=== PATIENT | female | born 1965 | race Two or more races ===

== ENCOUNTER 2024-12-20 10:12 | Inpatient (IN) | payer MEDICAID, OTHER ==
[~2024-12-20] VITALS: Ht 160 cm; Wt 76.8 kg
--- NOTE | 2024-12-20 10:29 | ED.PDOC ---
GI ASSESSMENT HPI Comments 59 y/o F, with PMHX of gallstones and HTN presents to the ED for CC of abdominal pain. Patient states, that she has been experiencing RUQ abdominal pain with associated symptoms of back pain, nausea, and vomiting xdays. Patient relays, that she has PMHX of cholelithiasis and is supposed to undergo a cholecystectomy on 01/16/25 however, symptoms have worsened. Patient denies dysuria, hematuria, diarrhea, headache, or fever. No other symptoms or modifying factors at this time. 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 all WELDING MACHINE OPERATOR/TENDER Hx Family History Family History: Family hx of HTN Social History Smoker: Non-Smoker Alcohol: Denies ETOH Use Drugs: Denies Drug Use Lives In: Home Constitutional: denies: chills, diaphoresis, fatigue, fever, malaise, sweats, weakness, others EENTM: denies: blurred vision, double vision, ear bleeding, ear discharge, ear drainage, ear pain, ear ringing, eye pain, eye redness, hearing loss, mouth pain, mouth swelling, nasal discharge, nose bleeding, nose congestion, nose pain, photophobia, tearing, throat pain, throat swelling, voice changes, others Respiratory: denies: cough, hemoptysis, orthopnea, SOB at rest, shortness of breath, SOB with excertion, stridor, wheezing, others Cardiovascular: denies: chest pain, dizzy spells, diaphoresis, Dyspnea on exertion, edema, irregular heart beat, left arm pain, lightheadedness, palpitations, PND, syncope, others Gastrointestinal: reports: abdominal pain, nausea, vomiting; denies: abdomen distended, blood streaked bowels, constipated, diarrhea, dysphagia, difficulty swallowing, hematemesis, melena, poor appetite, poor fluid intake, rectal bleeding, rectal pain, others Genitourinary: reports: flank pain; denies: abnormal vagina bleeding, burning, dyspareunia, dysuria, frequency, hematuria, incontinence, pain, , vagina discharge, urgency, others Neurological: denies: dizziness, fainting, headache, left sided numbness, left sided weakness, numbness, paresthesia, pre-existing deficit, right sided numbness, right sided weakness, seizure, speech problems, tingling, tremors, weakness, others Musculoskeletal: reports: back pain; denies: gout, joint pain, joint swelling, muscle pain, muscle stiffness, neck pain, others Integumetry: denies: bruises, change in color, change in hair/nails, dryness, laceration, lesions, lumps, rash, wounds, others Allergic/Immunocompromised: denies: Difficulty Healing, Frequent Infections, Hives, Itching, others Hematologic/Lymphatic: denies: anemia, blood clots, easy bleeding, easy bruising, swollen glands, others Endocrine: denies: excessive hunger, excessive sweating, excessive thirst, excessive urination, flushing, intolerance to cold, intolerance to heat, unexplained weight gain, unexplained weight loss, others Psychiatric: denies: anxiety, bipolar disorder, depression, hopeless, panic disorder, schizophrenia, sleepless, suicidal, others All Other Systems: Reviewed and Negative Physical Exam General Appearance: Moderate Distress HEENT: Normal ENT Inspection, Pharynx Normal, TMs Normal Neck: Full Range of Motion, Non-Tender, Normal, Normal Inspection Respiratory: Chest Non-Tender, Lungs Clear, No Accessory Muscle Use, No Respiratory Distress, Normal Breath Sounds Cardiovascular: No Edema, No JVD, No Murmur, No Gallop, Normal Peripheral Pul ses, Regular Rate/Rhythm Breast Exam: Deferred Gastrointestinal: No Organomegaly, No Pulsatile Mass, Normal Bowel Sounds, RUQ, Soft, Tenderness Genitalia: Deferred Pelvic: Deferred Rectal: Deferred Extremities: No calf tenderness, Normal capillary refill, Normal inspection, Normal range of motion, Non-tender, No pedal edema Musculoskeletal : Apperance: Normal Neurologic: Alert, inter com servicer II-XII nml as Tested, No Motor Deficits, Normal Affect, Normal Mood, No Sensory Deficits Cerebellar Function: Normal Reflexes: Normal Skin: Dry, Normal Color, Warm Lymphatic: No Adenopathy Was a procedure done? Was a procedure done?: No GI differential Dx Differential Diagnosis: Cholecystitis, Gastritis/PUD, Gastroenteritis, Electrolyte Imbalance X-Ray, Labs, Meds, VS Vital Signs Date Time Temp Pulse Resp B/P (MAP) Pulse Ox O2 Delivery O2 Flow Rate FiO2 12/20/24 12:09 98.0 74 19 142/86 (104) 99 98.0 12/20/24 12:08 Room Air* 0 21 12/20/24 11:36 89 18 135/84 12/20/24 11:06 71 17 122/65 12/20/24 10:18 98.4 73 20 129/65 (86) 98 Lab Test 12/20/24 10:41 12/20/24 10:23 Range/Units White Blood Count Pending Red Blood Count Pending Hemoglobin Pending Hematocrit Pending Mean Corpuscular Volume Pending Mean Corpuscular Hemoglobin Pending Mean Corpuscular Hemoglobin Concent Pending Red Cell Distribution Width Pending Platelet Count Pending Mean Platelet Volume Pending Neutrophils (%) (Auto) Pending Lymphocytes (%) (Auto) Pending Monocytes (%) (Auto) Pending Basophils (%) (Auto) Pending Neutrophils # (Auto) Pending Lymphocytes # (Auto) Pending Monocytes # (Auto) Pending Sodium Level 137 136-145 mmol/L Potassium Level 4.2 3.5-5.1 mmol/L Chloride Level 104 98-107 mmol/L Carbon Dioxide Level 22 20-31 mmol/L Anion Gap 11 5-15 Blood Urea Nitrogen 11 9-23 mg/dL Creatinine 0.79 0.550-1.02 mg/dL Glomerular Filtration Rate Calc 85 >90 mL/min BUN/Creatinine Ratio 13.9 10.0-20.0 Serum Glucose 96 74-106 mg/dL Calcium Level 10.3 8.7-10.4 mg/dL Total Bilirubin 1.1 H 0.2-1.0 mg/dL Aspartate Amino Transferase (AST) 31 13-40 U/L Alanine Aminotransferase (ALT) 24 7-40 U/L Alkaline Phosphatase 95 46-116 U/L Total Protein 8.2 5.7-8.2 g/dL Albumin 4.9 H 3.2-4.8 g/dL Lipase 43 12-53 U/L Urine Color Yellow Yellow Urine Clarity Clear Clear Urine pH 8.0 5.0-9.0 Urine Specific [place] 1.024 1.001-1.035 Urine Protein Trace H Negative Urine Ketones Negative Negative Urine Blood Negative Negative /uL Urine Nitrite Negative Negative Urine Bilirubin Negative Negative Urine Urobilinogen 2 H Negative mg/dL Urine Leukocyte Esterase Negative Negative /uL Urine RBC 12 0 - 4 /hpf Urine Microscopic WBC 1 0-5 /HPF Urine Squamous Epithelial Cells Few <5 /hpf Urine Bacteria None seen None Seen /hpf Urine Mucus Few None Seen Urine Glucose Normal Normal mg/dL Current Medications Medications (Trade) Dose Ordered Sig/Deepak Route Start Time Stop Time Status Last Admin Ondansetron HCl (Zofran) 4 mg ONCE ONCE IV 12/20/24 10:30 12/20/24 10:31 DC 12/20/24 11:04 Sodium Chloride 1,000 ml @ 1,000 mls/hr Q1H ONCE IVB 12/20/24 10:30 12/20/24 11:29 DC 12/20/24 11:04 Morphine Sulfate 4 mg ONCE ONCE IV 12/20/24 10:30 12/20/24 10:31 DC 12/20/24 11:06 Pantoprazole Sodium (Protonix) 40 mg ONCE ONCE IV 12/20/24 10:30 12/20/24 10:31 DC 12/20/24 11:04 GALLBLADDER US: FINDINGS: The liver demonstrates homogeneous echotexture without focal mass lesions. The liver measures 12.6 cm. There is no intrahepatic or extrahepatic ductal dilatation. The common duct measures 0.7 cm. Cholelithiasis. The gallbladder wall measures 0.2 cm and is within normal limits. The right kidney measures 9.8 cm. The right kidney is normal in contour, size, and shape. The echogenicity is normal. There is no hydronephrosis. The pancreas is not well visualized due to overlying bowel gas. IMPRESSION: Cholelithiasis. ATED BY: PADDY WADE MD DICTATED DATE/TIME: 12/20/24 1116 SIGNED BY: PDADY WADE MD SIGNED DATE/TIME: 12/20/24 111 CC: IV Hep-Lock was established The patient was given morphine 4 mg IV push for the pain The patient was given 1 L bolus of normal saline The patient was given Zofran 4 mg IV push The patient was given Protonix 40 mg IV push The urine test is negative for any infection The chemistry panel is within normal limits At this time, the patient was being admitted to the hospitalist. A surgical consult will be obtained. Images Reviewed?: Images reviewed and evaluated by me Time of 1ST Reevaluation: 10:50 Reevaluation 1ST: Unchanged Patient Education/Counseling: Diagnosis, Treatment, Prognosis Family Education/Counseling: Diagnosis, Treatment, Prognosis Departure 1 Departure Time of Disposition: 12:11 Impression: Primary Impression: Intractable abdominal pain Additional Impression: Cholelithiasis Qualified Codes: K80.20 - Calculus of gallbladder without cholecystitis without obstruction Disposition: ADMITTED INPATIENT Admit to: Med Surg Condition: Fair Critical Care Note Critical Care Time?: No Stability Stability form required: No Heart Score Heart Score: Heart Score Response (Comments) Value History N/A 0 EKG N/A 0 Age N/A 0 Risk Factors N/A 0 Troponin N/A 0 Total 0 I personally scribed for AISHA HUBER MD ([email or web address]) on 12/20/24 at 10:29. Electronically submitted by Lesley Celis ([email or web address]). I personally scribed for AISHA HUBER MD ([email or web address]) on 12/20/24 at 11:33. Electronically submitted by Lesley Celis ([email or web address]). AISHA HUBER MD Dec 20, 2024 10:29
[2024-12-20 10:42] LABS: Urine Bacteria None Seen /hpf (None Seen)
[2024-12-20] MEDS: PANTOPRAZOLE 40 MG/10 ML VIAL INJ IV ONE (11:04)
[2024-12-20] MEDS: SODIUM CHLORIDE 0.9% 1,000 ML IVB ONE (11:04)
[2024-12-20] MEDS: ONDANSETRON HCL 4 MG/2 ML VIAL IV ONE (11:04)
[2024-12-20] MEDS: MORPHINE SULFATE 4 MG/ML SYR/VIAL IV ONE (11:06)
[2024-12-20 11:15] LABS: Alanine Aminotransferase 24 U/L (7-40); Alkaline Phosphatase 95 U/L (46-116); Anion Gap 11 (5-15); Aspartate Aminotransferase 31 U/L (13-40); BUN/Creatinine Ratio 13.9 (10.0-20.0); Blood Urea Nitrogen 11 mg/dL (9-23); Calcium 10.3 mg/dL (8.7-10.4); Carbon Dioxide 22 mmol/L (20-31); Chloride 104 mmol/L (98-107); Glucose 96 mg/dL (74-106); Lipase 43 U/L (12-53); Potassium 4.2 mmol/L (3.5-5.1); Sodium 137 mmol/L (136-145); Total Protein 8.2 g/dL (5.7-8.2)
[2024-12-20 11:16] LABS: Bilirubin, Total 1.1 mg/dL (0.2-1.0)
--- NOTE | 2024-12-20 11:19 | DVH ---
INDICATION: pain TECHNIQUE: Multiple real-time sonographic images were obtained of the right upper quadrant. COMPARISON: None FINDINGS: The liver demonstrates homogeneous echotexture without focal mass lesions. The liver measu res 12.6 cm. There is no intrahepatic or extrahepatic ductal dilatation. The common duct measures 0.7 cm. Cholelithiasis. The gallbladder wall measures 0.2 cm and is within normal limits. The right kidney measures 9.8 cm. The right kidney is normal in contour, size, and shape. The echogen icity is normal. There is no hydronephrosis. The pancreas is not well visualized due to overlying bowel gas. IMPRESSION: Cholelithiasis.
[2024-12-20 11:32] LABS: Albumin 4.9 g/dL (3.2-4.8)
[2024-12-20 11:49] LABS: Urine Blood Negative /uL (Negative); Urine Clarity Clear (Clear); Urine Color Yellow (Yellow); Urine Mucus FEW (None Seen); Urine Protein, UAD TRACE (Negative); Urine Specific Gravity 1.024 (1.001-1.035); Urine Squamous Epithelial Cell FEW /hpf (<5); Urine Urobilinogen 2 mg/dL (Negative); Urine WBC 1 /HPF (0-5)
[2024-12-20 13:06] LABS: Basophils # (auto) 0.1 10 ^3/uL (0-0.2); Basophils % (auto) 0.7 % (0.0-2.0); Eosinophils # (auto) 0.2 10 ^3/uL (0-0.8); Eosinophils % (auto) 2.8 % (0.0-7.0); Hematocrit 41.9 % (36.0-46.0); Hemoglobin 14.1 g/dL (12.2-16.2); Lymphocytes # (auto) 2.7 10 ^3/uL (0.4-5.4); Lymphocytes % (auto) 30.5 % (10.0-50.0); Mean Corpuscular Hemoglobin 31.3 pg (28.0-32.0); Mean Corpuscular Hgb Conc. 33.7 g/dL (32.0-36.0); Mean Corpuscular Volume 92.9 fL (80.0-100.0); Monocytes # (auto) 0.6 10 ^3/uL (0-1.3); Monocytes % (auto) 6.2 % (0.0-12.0); Neutrophils # (auto) 5.3 10 ^3/uL (1.6-8.6); Neutrophils % (auto) 59.8 % (37.0-80.0); Nucleated Red Blood Cells % 0.1 %; Platelet Count (auto) 283 10^3/uL (140-450); Red Blood Cells 4.51 10^6/uL (4.0-5.20); Red Cell Distribution Width 13.7 % (11.8-14.3); White Blood Cell 8.8 10^3/uL (4.4-10.8)
--- NOTE | 2024-12-20 15:25 | DVHHPRES ---
History of Present Illness Resident Creating Document: CLINTON MEYER RESIDENT History of Present Illness This is a 59-year-old Icelandic-speaking female with past medical history of hypertension, cholelithiasis who presented to the ER with a chief complaint of right-sided abdominal pain for the past week. She reported right upper quadrant pain, radiating to the back associated with nausea and vomiting, she is not able to tolerate liquids or solid. Patient was diagnosed with cholelithiasis in 2023 and has an initial appointment with the surgeon on January 16. She developed right upper quadrant pain and therefore she decided to come into the ER. Ultrasound abdomen completed with the ER, shows cholelithiasis. Patient has positive Arnett sign on physical examination. Past medical history: Hypertension Past surgical history: Right shoulder surgery Family history: Open heart surgery in brother for congenital heart disease at the age of 19 Medication: Takes antihypertensive-does not remember the name Allergic history, denies Social history lives with daughter, denies smoking or drinking or illicit drug use Patient seen and examined at the bedside. Arnett sign positive. IV ceftriaxone and metronidazole started. Surgeon consulted. NPO after midnight. Past Medical History Hypertension Past Surgical History Right shoulder surgery Family History Open heart surgery in brother for congenital heart disease at the age of 19 Smoke: No ALCOHOL: none Drugs: None Lives: with Family Review of Systems Allergies: Coded Allergies: NO KNOWN ALLERGIES (Unverified , 12/20/24) Exam Vital Signs Vital Signs Date Time Temp Pulse Resp B/P (MAP) Pulse Ox O2 Delivery O2 Flow Rate FiO2 12/20/24 14:21 97.7 67 16 98/58 (71) 96 97.7 12/20/24 12:08 Room Air* 0 21 Exam Female patient sitting comfortably in the chair, no acute distress General: Well-built, afebrile, palor, mucosae are moist Cardiovascular: Regular S1 and S2. No murmurs, gallops or rubs. No JVD elevation. No pedal edema Respiratory: Normal B/L air entry on room air. Clear lung sounds on auscultation Abdomen: Soft, right upper quadrant tenderness, nondistended, normoactive bowel sounds, no rebound tenderness, no organomegaly, no masses. Arnett sign is positive. Genitourinary: Deferred MSK/skin: Mobilizes 4 limbs. Skin is dry and warm Neurological: No motor, no sensitive deficits, normal speech. Pupils are isocoric and reactive. Psych/Mental Status: A/Ox3 Labs/Xrays Labs Test 12/20/24 10:41 12/20/24 10:23 Range/Units White Blood Count 8.8 4.4-10.8 10^3/uL Red Blood Count 4.51 4.0-5.20 10^6/uL Hemoglobin 14.1 12.2-16.2 g/dL Hematocrit 41.9 36.0-46.0 % Mean Corpuscular Volume 92.9 80.0-100.0 fL Mean Corpuscular Hemoglobin 31.3 28.0-32.0 pg Mean Corpuscular Hemoglobin Concent 33.7 32.0-36.0 g/dL Red Cell Distribution Width 13.7 11.8-14.3 % Platelet Count 283 140-450 10^3/uL Mean Platelet Volume 8.9 6.9-10.8 fL Neutrophils (%) (Auto) 59.8 37.0-80.0 % Lymphocytes (%) (Auto) 30.5 10.0-50.0 % Monocytes (%) (Auto) 6.2 0.0-12.0 % Eosinophils (%) (Auto) 2.8 0.0-7.0 % Basophils (%) (Auto) 0.7 0.0-2.0 % Neutrophils # (Auto) 5.3 1.6-8.6 10 ^3/uL Lymphocytes # (Auto) 2.7 0.4-5.4 10 ^3/uL Monocytes # (Auto) 0.6 0-1.3 10 ^3/uL Eosinophils # (Auto) 0.2 0-0.8 10 ^3/uL Basophils # (Auto) 0.1 0-0.2 10 ^3/uL Nucleated Red Blood Cells 0.1 % Sodium Level 137 136-145 mmol/L Potassium Level 4.2 3.5-5.1 mmol/L Chloride Level 104 98-107 mmol/L Carbon Dioxide Level 22 20-31 mmol/L Anion Gap 11 5-15 Blood Urea Nitrogen 11 9-23 mg/dL Creatinine 0.79 0.550-1.02 mg/dL Glomerular Filtration Rate Calc 85 >90 mL/min BUN/Creatinine Ratio 13.9 10.0-20.0 Serum Glucose 96 74-106 mg/dL Calcium Level 10.3 8.7-10.4 mg/dL Total Bilirubin 1.1 H 0.2-1.0 mg/dL Aspartate Amino Transferase (AST) 31 13-40 U/L Alanine Aminotransferase (ALT) 24 7-40 U/L Alkaline Phosphatase 95 46-116 U/L Total Protein 8.2 5.7-8.2 g/dL Albumin 4.9 H 3.2-4.8 g/dL Lipase 43 12-53 U/L Urine Color Yellow Yellow Urine Clarity Clear Clear Urine pH 8.0 5.0-9.0 Urine Specific [place] 1.024 1.001-1.035 Urine Protein Trace H Negative Urine Ketones Negative Negative Urine Blood Negative Negative /uL Urine Nitrite Negative Negative Urine Bilirubin Negative Negative Urine Urobilinogen 2 H Negative mg/dL Urine Leukocyte Esterase Negative Negative /uL Urine RBC 12 0 - 4 /hpf Urine Microscopic WBC 1 0-5 /HPF Urine Squamous Epithelial Cells Few <5 /hpf Urine Bacteria None seen None Seen /hpf Urine Mucus Few None Seen Urine Glucose Normal Normal mg/dL Assessment/Plan Assessment/Plan Right upper quadrant pain secondary to cholelithiasis IV ceftriaxone and metronidazole Clear liquid diet for now, NPO after midnight Surgeon consulted Hypertension Holding antihypertensives given low blood pressure Lovenox 40 mg sc daily Protonix 40 mg IV daily Plan discussed with patient, daughter in ER holding, all questions have been answered Goals of care discussed with the patient for more than 37 minutes, full code status Case discussed with Dr. Beatty Plan discussed with: Patient Date of Service: Dec 20, 2024 Billing Provider: DEDRICK CHAMPION MD Common Visit Codes: [id number] INP/OBS CARE (HIGH) CLINTON MEYER RESIDENT Dec 20, 2024 15:25 DEDRICK CHAMPION MD Dec 26, 2024 02:35
[2024-12-20] MEDS ORDERED: ONDANSETRON HCL 4 MG/2 ML VIAL IV PRN (15:30)
[2024-12-20] MEDS ORDERED: ENOXAPARIN SOD 40 MG/0.4 ML SYRINGE SC SCH (15:30)
[2024-12-20] MEDS ORDERED: metroNIDAZOLE 500MG/100ML 100 ML IV ONE (15:30)
[2024-12-20] MEDS ORDERED: PANTOPRAZOLE 40 MG/10 ML VIAL INJ IV ONE (15:30)
[2024-12-20] MEDS ORDERED: HYDROcodone-ACET 5/325MG TAB PO PRN (15:30)
[2024-12-20] MEDS: cefTRIAXone 1GM/50ML D5W 50 ML IV ONE (17:32)
--- NOTE | 2024-12-20 18:01 | DVH ---
CHEST RADIOGRAPH Indication: Preop clearance Technique: Single frontal view of the chest was obtained Comparison: None FINDINGS: Lines and Tubes: None Lungs: No focal consolidation. Pleura: No effusion. No pneumothorax. Cardiomediastinal contours: Unremarkable Bones: No acute osseous abnormality. IMPRESSION: 1. No acute cardiopulmonary disease.
[2024-12-20 19:58] VITALS: BP 115/74; PULSE 66; RESP 18; TEMP 97.6; O2SAT 99
[2024-12-20 21:00] VITALS: BP 105/63; PULSE 62; RESP 20; TEMP 98.4; O2SAT 98
[2024-12-20] MEDS: metroNIDAZOLE 500MG/100ML 100 ML IV SCH (21:18)
[2024-12-20] MEDS ORDERED: TELM80TA PO (22:12)
[2024-12-21] VITALS (7 sets, daily range): BP systolic 95–128; BP diastolic 55–71; PULSE 59–78; RESP 16–20; TEMP 97.6–99.1; O2SAT 95–99
[2024-12-21] MEDS: HYDROcodone-ACET 5/325MG TAB PO PRN (00:49)
[2024-12-21 06:02] LABS: Basophils # (auto) 0 10 ^3/uL (0-0.2); Basophils % (auto) 0.7 % (0.0-2.0); Eosinophils # (auto) 0.1 10 ^3/uL (0-0.8); Eosinophils % (auto) 1.3 % (0.0-7.0); Hematocrit 35.3 % (36.0-46.0); Hemoglobin 12.4 g/dL (12.2-16.2); Lymphocytes # (auto) 2.7 10 ^3/uL (0.4-5.4); Lymphocytes % (auto) 42.8 % (10.0-50.0); Mean Corpuscular Hemoglobin 31.3 pg (28.0-32.0); Mean Corpuscular Volume 89.3 fL (80.0-100.0); Monocytes # (auto) 0.4 10 ^3/uL (0-1.3); Monocytes % (auto) 6.2 % (0.0-12.0); Neutrophils # (auto) 3.1 10 ^3/uL (1.6-8.6); Platelet Count (auto) 301 10^3/uL (140-450); Red Blood Cells 3.96 10^6/uL (4.0-5.20); Red Cell Distribution Width 13.3 % (11.8-14.3); White Blood Cell 6.2 10^3/uL (4.4-10.8)
[2024-12-21 06:13] LABS: INR 1.04 (0.9-1.15); Partial Thromboplastin Time 27.1 SEC (24.5-34.5)
[2024-12-21 06:19] LABS: Alanine Aminotransferase 19 U/L (7-40); Albumin 4.4 g/dL (3.2-4.8); Alkaline Phosphatase 82 U/L (46-116); Anion Gap 7 (5-15); Aspartate Aminotransferase 16 U/L (13-40); BUN/Creatinine Ratio 13.9 (10.0-20.0); Blood Urea Nitrogen 11 mg/dL (9-23); Calcium 9.9 mg/dL (8.7-10.4); Carbon Dioxide 29 mmol/L (20-31); Chloride 104 mmol/L (98-107); Glucose 90 mg/dL (74-106); Potassium 4.1 mmol/L (3.5-5.1); Sodium 140 mmol/L (136-145); Total Protein 7.2 g/dL (5.7-8.2)
[2024-12-21 06:20] LABS: Bilirubin, Total 0.9 mg/dL (0.2-1.0)
[2024-12-21] MEDS: ERGOCALCIFEROL 50,000 UNIT(1.25MG) CAP PO SCH (08:55)
[2024-12-21] MEDS: PANTOPRAZOLE 40 MG/10 ML VIAL INJ IV SCH (08:55)
[2024-12-21] MEDS: cefTRIAXone 1GM/50ML D5W 50 ML IV SCH (08:56)
[2024-12-21] MEDS: SODIUM CHLORIDE 0.9% 1,000 ML IV ONE (08:56)
--- NOTE | 2024-12-21 14:51 | DVHPNRES ---
Progress Note Date Seen: Dec 21, 2024 Resident Creating Document: CLINTON MEYER RESIDENT Medical Necessity Reason Pt with a Central, PICC or Fol: No Subjective Review of Systems This is a 59-year-old Azeri-speaking female with past medical history of hypertension, cholelithiasis who presented to the ER with a chief complaint of right-sided abdominal pain for the past week. She reported right upper quadrant pain, radiating to the back associated with nausea and vomiting, she is not able to tolerate liquids or solid. Patient was diagnosed with cholelithiasis in 2023 and has an initial appointment with the surgeon on January 16. She developed right upper quadrant pain and therefore she decided to come into the ER. Ultrasound abdomen completed with the ER, shows cholelithiasis. Patient has positive Arnett sign on physical examination. Past medical history: Hypertension Past surgical history: Right shoulder surgery Family history: Open heart surgery in brother for congenital heart disease at the age of 19 Medication: Takes antihypertensive-does not remember the name Allergic history, denies Social history lives with daughter, denies smoking or drinking or illicit drug use 12/20 - Patient seen and examined at the bedside. Arnett sign positive. IV ceftriaxone and metronidazole started. Surgeon consulted. NPO after midnight. 12/21 - patient seen and examined at the bedside. Started clear liquid diet. Surgical consult pending. Objective vital signs Vital Sign Date Time Temp Pulse Resp B/P (MAP) Pulse Ox O2 Delivery O2 Flow Rate FiO2 12/21/24 12:46 98.8 61 16 105/64 (78) 96 98.8 12/20/24 19:54 Room Air* 0 21 Total Intake and Output 12/20/24 12/20/24 12/21/24 15:00 23:00 07:00 Intake Total 1000 ml 150 ml 100 ml Balance 1000 ml 150 ml 100 ml medications Current Medications Medications Dose Ordered Sig/Deepak Route Start Time Stop Time Status Last Admin Dose Admin Ceftriaxone Sodium 50 ml @ 100 mls/hr DAILY@09 IV 12/21/24 09:00 12/21/24 08:56 100 MLS/HR Metronidazole 100 ml @ 100 mls/hr Q8HR IV 12/20/24 22:00 12/21/24 13:07 100 MLS/HR Pantoprazole Sodium 40 mg DAILY IV 12/21/24 10:00 12/21/24 08:55 40 MG Acetaminophen 500 mg Q4HPRN PRN PO 12/20/24 15:30 Acetaminophen/ Hydrocodone Bitart 1 tab Q4HPRN PRN PO 12/20/24 15:30 12/21/24 00:49 1 TAB Ondansetron HCl 4 mg Q6HPRN PRN IV 12/20/24 15:30 Ergocalciferol 50,000 unit Q7D PO 12/21/24 07:15 12/21/24 08:55 50,000 UNIT Examination Female patient sitting comfortably in the chair, no acute distress General: Well-built, afebrile, palor, mucosae are moist Cardiovascular: Regular S1 and S2. No murmurs, gallops or rubs. No JVD elevation. No pedal edema Respiratory: Normal B/L air entry on room air. Clear lung sounds on auscultation Abdomen: Soft, right upper quadrant tenderness, nondistended, normoactive bowel sounds, no rebound tenderness, no organomegaly, no masses. Arnett sign is positive. Genitourinary: Deferred MSK/skin: Mobilizes 4 limbs. Skin is dry and warm Neurological: No motor, no sensitive deficits, normal speech. Pupils are isocoric and reactive. Psych/Mental Status: A/Ox3 laboratory and microbiology Laboratory Tests 12/21/24 05:07 12/21/24 05:06 Test 12/21/24 05:07 Range/Units Serum Glucose 90 74-106 mg/dL Labs and/or images reviewed: Labs reviewed by me, Image(s) reviewed by me Problem List/Assessment/Plan Problem List/Assessment/Plan Right upper quadrant pain secondary to cholelithiasis IV ceftriaxone and metronidazole Clear liquid diet for now, NPO after midnight Surgeon consulted Hypertension Holding antihypertensives given low blood pressure Lovenox 40 mg sc daily Protonix 40 mg IV daily Plan discussed with patient, daughter in ER holding, all questions have been answered Goals of care discussed with the patient for more than 37 minutes, full code status Case discussed with Dr. Beatty Plan discussed with: Patient, Daughter My Orders My Orders Orders - CLINTON MEYER RESIDENT Procedure Category Date Status Time Admit ADMIT 12/20/24 Transmitted 15:18 Chest Xray 1 View XY 12/20/24 Resulted 15:25 Electrocardigram EKG 12/20/24 Logged 15:25 Drug Screen LAB 12/20/24 Logged 15:25 Ceftriaxone 1gm/50ml PHA 12/21/24 In Process D5w (Rocephin) 09:00 Metronidazole PHA 12/20/24 In Process 500mg/100ml (Flagyl 22:00 Pantoprazole PHA 12/21/24 In Process (Protonix) 10:00 Acetaminophen Tab Or PHA 12/20/24 In Process Cap (Tylenol Tablet 15:30 Hydrocodone-Acet PHA 12/20/24 In Process 5/325mg Tab (Center 15:30 Ondansetron Hcl PHA 12/20/24 In Process (Zofran) 15:30 Ergocalciferol PHA 12/21/24 In Process (Vitamin D 50,000 07:15 Full Liq Diet DIET 12/21/24 Transmitted Lunch Communication Order ORDERS 12/21/24 Transmitted 12:01 * Surgical Consult CONS 12/21/24 Transmitted 12:01 Date of Service: Dec 21, 2024 Billing Provider: DEDRICK CHAMPION MD Common Visit Codes: [id number] INP/OBS CARE(HIGH) CLINTON MEYER RESIDENT Dec 21, 2024 14:51 DEDRICK CHAMPION MD Dec 26, 2024 01:40
--- NOTE | 2024-12-21 16:54 | DVHINCON2 ---
Date of service: Dec 21, 2024 Family History: Patient reports no known family medical history. Allergies: Coded Allergies: NO KNOWN ALLERGIES (Unverified , 12/20/24) Home Meds Reported Medications Telmisartan (Micardis) 80 Mg Tab, 80 MG PO DAILY, TAB 12/20/24 Current Medications Current Medications Medications (Trade) Dose Ordered Sig/Deepak Route PRN Reason Start Time Stop Time Status Last Admin Ceftriaxone Sodium 50 ml @ 100 mls/hr DAILY@09 IV 12/21/24 09:00 12/21/24 08:56 Metronidazole 100 ml @ 100 mls/hr Q8HR IV 12/20/24 22:00 12/21/24 13:07 Pantoprazole Sodium (Protonix) 40 mg DAILY IV 12/21/24 10:00 12/21/24 08:55 Ergocalciferol (Vitamin D 50,000 Unit) 50,000 unit Q7D PO 12/21/24 07:15 12/21/24 08:55 Vital Signs Vital Signs Date Time Temp Pulse Resp B/P (MAP) Pulse Ox O2 Delivery O2 Flow Rate FiO2 12/21/24 12:46 98.8 61 16 105/64 (78) 96 98.8 12/20/24 19:54 Room Air* 0 21 Labs/Diagnostic Data Labs Test 12/21/24 05:07 12/21/24 05:06 12/20/24 18:42 12/20/24 10:41 Range/Units Prothrombin Time 11.0 9.3-11.8 sec Prothrombin Time INR 1.04 0.9-1.15 Activated Partial Thromboplast Time 27.1 24.5-34.5 SEC Sodium Level 140 136-145 mmol/L Potassium Level 4.1 3.5-5.1 mmol/L Chloride Level 104 98-107 mmol/L Carbon Dioxide Level 29 20-31 mmol/L Anion Gap 7 5-15 Blood Urea Nitrogen 11 9-23 mg/dL Creatinine 0.79 0.550-1.02 mg/dL Glomerular Filtration Rate Calc 85 >90 mL/min BUN/Creatinine Ratio 13.9 10.0-20.0 Serum Glucose 90 74-106 mg/dL Calcium Level 9.9 8.7-10.4 mg/dL Total Bilirubin 0.9 0.2-1.0 mg/dL Aspartate Amino Transferase (AST) 16 13-40 U/L Alanine Aminotransferase (ALT) 19 7-40 U/L Alkaline Phosphatase 82 46-116 U/L Total Protein 7.2 5.7-8.2 g/dL Albumin 4.4 3.2-4.8 g/dL White Blood Count 6.2 # 4.4-10.8 10^3/uL Red Blood Count 3.96 L 4.0-5.20 10^6/uL Hemoglobin 12.4 12.2-16.2 g/dL Hematocrit 35.3 #L 36.0-46.0 % Mean Corpuscular Volume 89.3 80.0-100.0 fL Mean Corpuscular Hemoglobin 31.3 28.0-32.0 pg Mean Corpuscular Hemoglobin Concent 35.0 32.0-36.0 g/dL Red Cell Distribution Width 13.3 11.8-14.3 % Platelet Count 301 140-450 10^3/uL Mean Platelet Volume 8.0 6.9-10.8 fL Neutrophils (%) (Auto) 49.0 37.0-80.0 % Lymphocytes (%) (Auto) 42.8 10.0-50.0 % Monocytes (%) (Auto) 6.2 0.0-12.0 % Eosinophils (%) (Auto) 1.3 0.0-7.0 % Basophils (%) (Auto) 0.7 0.0-2.0 % Neutrophils # (Auto) 3.1 1.6-8.6 10 ^3/uL Lymphocytes # (Auto) 2.7 0.4-5.4 10 ^3/uL Monocytes # (Auto) 0.4 0-1.3 10 ^3/uL Eosinophils # (Auto) 0.1 0-0.8 10 ^3/uL Basophils # (Auto) 0 0-0.2 10 ^3/uL Nucleated Red Blood Cells 0.0 % Thyroid Stimulating Hormone (TSH) 2.79 0.55-4.78 uIU/mL Hemoglobin A1c 5.1 <5.7 % A1C Magnesium Level 2.2 1.6-2.6 mg/dL Lipase 43 12-53 U/L Vitamin B12 Level 467 211-911 pg/mL Vitamin D 25-Hydroxy 29.2 L 30.0-100 ng/mL Test 12/20/24 10:23 Range/Units Urine Color Yellow Yellow Urine Clarity Clear Clear Urine pH 8.0 5.0-9.0 Urine Specific [place] 1.024 1.001-1.035 Urine Protein Trace H Negative Urine Ketones Negative Negative Urine Blood Negative Negative /uL Urine Nitrite Negative Negative Urine Bilirubin Negative Negative Urine Urobilinogen 2 H Negative mg/dL Urine Leukocyte Esterase Negative Negative /uL Urine RBC 12 0 - 4 /hpf Urine Microscopic WBC 1 0-5 /HPF Urine Squamous Epithelial Cells Few <5 /hpf Urine Bacteria None seen None Seen /hpf Urine Mucus Few None Seen Urine Glucose Normal Normal mg/dL Assessment [id number] R/O AC CHOLECYSTITIS CONSIDER LAP/OPEN CHOLECYSTECTOMY AM BASED ON ONGOING EVAL Plan discussed with: Patient TOM STANLEY MD Dec 21, 2024 16:54
--- NOTE | 2024-12-21 20:53 | DVHINCON2 ---
DATE OF CONSULTATION: 12/21/2024 DATE OF SERVICE: 12/21/2024 ATTENDING PHYSICIAN: Leonel Sol MD. HISTORY OF PRESENT ILLNESS: This patient is 59 years old, coming in with right upper quadrant pain. She has had this happened before last year, was scheduled for gallbladder surgery, but did not happen and then comes back with the same kind of pain and some nausea, but no vomiting, no constipation, diarrhea. No hematemesis, melena. No bleeding per rectum. PAST MEDICAL HISTORY: Hypertension. No diabetes. PAST SURGICAL HISTORY: Right shoulder surgery. PHYSICAL EXAMINATION: VITAL SIGNS: Afebrile, stable signs. HEENT: With no evidence of pallor, cyanosis, or jaundice. NECK: Supple, nontender with no thyromegaly, lymphadenopathy. CHEST AND LUNGS: Clear. HEART: Within normal limits. ABDOMEN: Soft. She is tender in the right upper quadrant. Minimal rebound. EXTREMITIES: Unremarkable. NEUROLOGIC: Intact. CLINICAL IMPRESSION: Rule out acute cholecystitis. PLAN: Laparoscopic, possible open cholecystectomy. Benefits discussed. Risks discussed and a consent obtained. MD GUADALUPE [place]/NANDINI TID: [id number] RECEIPT: [id number] cc: Dr. Lux Lawler
[2024-12-22] VITALS (9 sets, daily range): BP systolic 93–115; BP diastolic 56–74; PULSE 65–80; RESP 15–18; TEMP 97.5–98.2; O2SAT 93–99
--- NOTE | 2024-12-22 09:39 | DVHPNRES ---
Progress Note Date Seen: Dec 22, 2024 Resident Creating Document: CLINTON MEYER RESIDENT Medical Necessity Reason Pt with a Central, PICC or Fol: No Subjective Review of Systems This is a 59-year-old Estonian-speaking female with past medical history of hypertension, cholelithiasis who presented to the ER with a chief complaint of right-sided abdominal pain for the past week. She reported right upper quadrant pain, radiating to the back associated with nausea and vomiting, she is not able to tolerate liquids or solid. Patient was diagnosed with cholelithiasis in 2023 and has an initial appointment with the surgeon on January 16. She developed right upper quadrant pain and therefore she decided to come into the ER. Ultrasound abdomen completed with the ER, shows cholelithiasis. Patient has positive Arnett sign on physical examination. Past medical history: Hypertension Past surgical history: Right shoulder surgery Family history: Open heart surgery in brother for congenital heart disease at the age of 19 Medication: Takes antihypertensive-does not remember the name Allergic history, denies Social history lives with daughter, denies smoking or drinking or illicit drug use 12/20 - Patient seen and examined at the bedside. Arnett sign positive. IV ceftriaxone and metronidazole started. Surgeon consulted. NPO after midnight. 12/21 - patient seen and examined at the bedside. Started clear liquid diet. Surgical consult pending. 12/22 patient seen and examined at the bedside. Patient underwent lap cholecystectomy, no drains and no complications. Objective vital signs Vital Sign Date Time Temp Pulse Resp B/P (MAP) Pulse Ox O2 Delivery O2 Flow Rate FiO2 12/22/24 08:00 65 15 99 Room Air* 0 21 12/22/24 05:00 98.2 115/74 (88) 98.2 Total Intake and Output 12/21/24 12/21/24 12/22/24 15:00 23:00 07:00 Intake Total 150 ml 100 ml 300 ml Balance 150 ml 100 ml 300 ml medications Current Medications Medications Dose Ordered Sig/Deepak Route Start Time Stop Time Status Last Admin Dose Admin Ceftriaxone Sodium 50 ml @ 100 mls/hr DAILY@09 IV 12/21/24 09:00 12/22/24 08:16 100 MLS/HR Metronidazole 100 ml @ 100 mls/hr Q8HR IV 12/20/24 22:00 12/22/24 05:19 100 MLS/HR Pantoprazole Sodium 40 mg DAILY IV 12/21/24 10:00 12/22/24 08:16 40 MG Acetaminophen 500 mg Q4HPRN PRN PO 12/20/24 15:30 Acetaminophen/ Hydrocodone Bitart 1 tab Q4HPRN PRN PO 12/20/24 15:30 12/21/24 00:49 1 TAB Ondansetron HCl 4 mg Q6HPRN PRN IV 12/20/24 15:30 Ergocalciferol 50,000 unit Q7D PO 12/21/24 07:15 12/21/24 08:55 50,000 UNIT Examination Female patient sitting comfortably in the chair, no acute distress General: Well-built, afebrile, palor, mucosae are moist Cardiovascular: Regular S1 and S2. No murmurs, gallops or rubs. No JVD elevation. No pedal edema Respiratory: Normal B/L air entry on room air. Clear lung sounds on auscultation Abdomen: Soft, right upper quadrant tenderness, nondistended, normoactive bowel sounds, no rebound tenderness, no organomegaly, no masses. Arnett sign is positive. Genitourinary: Deferred MSK/skin: Mobilizes 4 limbs. Skin is dry and warm Neurological: No motor, no sensitive deficits, normal speech. Pupils are isocoric and reactive. Psych/Mental Status: A/Ox3 laboratory and microbiology Laboratory Tests 12/21/24 05:07 12/21/24 05:06 Test 12/21/24 05:07 Range/Units Serum Glucose 90 74-106 mg/dL Labs and/or images reviewed: Labs reviewed by me, Image(s) reviewed by me Problem List/Assessment/Plan Problem List/Assessment/Plan Right upper quadrant pain secondary to cholelithiasis status post laparoscopic cholecystectomy 12/22 Acute cholecystitis-Arnett's positive Intractable nausea and vomiting IV ceftriaxone and metronidazole Clear liquid diet for now, NPO after midnight Surgeon consulted - 12/22-Patient underwent lap cholecystectomy, no drains and no complications. Hypertension Holding antihypertensives given low blood pressure Vitamin-D deficiency Supplemented Lovenox 40 mg sc daily Protonix 40 mg IV daily Clear liquid diet. Plan discussed with patient, daughter in ER holding, all questions have been answered Goals of care discussed with the patient for more than 37 minutes, full code status Case discussed with Dr. Beatty Plan discussed with: Patient My Orders My Orders Orders - CLINTON MEYER Procedure Category Date Status Time Communication Order ORDERS 12/21/24 Transmitted 12:01 * Surgical Consult CONS 12/21/24 Transmitted 12:01 Type And Screen BBK 12/22/24 In Process 04:00 Date of Service: Dec 22, 2024 Billing Provider: DEDRICK CHAMPION MD Common Visit Codes: [id number] INP/OBS CARE(HIGH) CLINTON MEYER Dec 22, 2024 09:39 DEDRICK CHAMPION MD Dec 26, 2024 01:42
[2024-12-22] MEDS ORDERED: SUCCINYLCHOLINE CHLORIDE 20 MG/ML 10ML VIAL IV ONE (17:12)
[2024-12-22] MEDS ORDERED: fentaNYL CITRATE 100 MCG/2 ML VL ONE (17:13)
[2024-12-22] MEDS ORDERED: PROPOFOL 10 MG/ML 20 ML IV ONE (17:14)
[2024-12-22] MEDS: ceFAZolin 1GM/50ML 100 ML IV ONE (17:18)
[2024-12-22] MEDS ORDERED: ROCURONIUM 10MG/ML 10ML VIAL IV ONE (17:29)
[2024-12-22] MEDS ORDERED: ePHEDrine SULFATE 50 MG/ML AMP ONE (17:35)
[2024-12-22] MEDS ORDERED: DexAMETHasone SOD PHOS 10MG/1ML VIAL INJ ONE (17:44)
[2024-12-22] MEDS ORDERED: ONDANSETRON HCL 4 MG/2 ML VIAL ONE (17:44)
[2024-12-22] MEDS ORDERED: MEPERIDINE HCL (25 MG/ML) 1ML VIAL ONE (18:04)
[2024-12-22] MEDS ORDERED: SUGAMMADEX 200mg/2ml Vial (100MG/ML) IV ONE (18:19)
[2024-12-22] MEDS: BUPIVACAINE 0.25% INJ 50ML VIAL ONE (18:20)
[2024-12-22] MEDS: LIDOCAINE 1% HCL (LOCAL ANESTH.) INJ 20ML MDV ONE (18:20)
--- NOTE | 2024-12-22 18:25 | DVHOP2 ---
Operative Report [id number] AC CHOLECYSTITIS LAP CHOLECYSTECTOMY ASSIST EDITH EBL 5 CC NO DRAINS NO COMPLICATIONS TOM STANLEY MD Dec 22, 2024 18:25
[2024-12-22] MEDS ORDERED: fentaNYL CITRATE 100 MCG/2 ML VL IM PRN (18:45)
[2024-12-22] MEDS ORDERED: ONDANSETRON HCL 4 MG/2 ML VIAL IV ONE (18:45)
[2024-12-22] MEDS ORDERED: ACETAMINOPHEN IV 1000 MG/100ML (10MG/ML) IV PRN (18:45)
[2024-12-22] MEDS ORDERED: MEPERIDINE HCL (25 MG/ML) 1ML VIAL IV PRN (18:45)
[2024-12-22] MEDS: HYDROmorphone HCL 2 MG/ML VL/or syr IV PRN (18:53)
[2024-12-22] MEDS: SODIUM CHLORIDE 0.9% 1,000 ML IV ONE (19:15)
--- NOTE | 2024-12-22 19:25 | DVHOP ---
DATE OF SURGERY: 12/22/2024 PREOPERATIVE DIAGNOSIS: Acute cholecystitis. POSTOPERATIVE DIAGNOSIS: Acute cholecystitis. PROCEDURE: Laparoscopic cholecystectomy. SURGEON: Leonel Sol MD ANGLESMITH HELPER: None. ANESTHESIA: General. ESTIMATED BLOOD LOSS: Close to 5 mL. DRAINS: No drains were used. COMPLICATIONS: No complications were encountered. DESCRIPTION OF PROCEDURE: The patient was prepped and draped in the usual sterile fashion in the supine position. An infraumbilical incision was applied, was taken down to the fascia. The Veress needle was introduced and CO2 insufflation was started to a pressure of 15 mmHg. The needle was withdrawn, replaced by the 5 mm trocar and a telescope introduced and the gallbladder was found acutely inflamed, distended. A 12 mm port was applied close to the xiphisternum and two 5 mm ports were applied more laterally in the subcostal line. With the instruments in place, the gallbladder was grasped at the fundus and infundibulum and the patient in the head up and right upper lateral position, the cystic duct and artery were , dissected out and clipped proximally and distally using Hem-o-Jeremy clips and divided in between making sure CBD was kept out of harm's at all times and gallbladder was detached from the liver bed using Harmonic dissection, placed in an EndoCatch bag and removed from the xiphisternal wound without any complication. Hemostasis was secured. Irrigation fluid was removed. The port sites were free from bleeding. EndoClose suture used for the fascial closure of the xiphisternal wound. All ports were withdrawn after all the CO2 had been let out and the patient was placed in supine. The wounds were then brought together using 3-0 Monocryl suture in a subcuticular fashion. Surgical glue was applied. The patient tolerated the procedure well and was taken back to recovery room in stable condition. MD GUADALUPE [place]/BERNA TID: [id number] RECEIPT: [id number] cc: DR. EDITH OSMAN
[2024-12-23] VITALS (9 sets, daily range): BP systolic 109–126; BP diastolic 50–81; PULSE 68–91; RESP 15–20; TEMP 97.3–99.1; O2SAT 92–100
[2024-12-23 12:29] LABS: Basophils # (auto) 0.1 10 ^3/uL (0-0.2); Basophils % (auto) 0.4 % (0.0-2.0); Eosinophils # (auto) 0 10 ^3/uL (0-0.8); Hematocrit 32.6 % (36.0-46.0); Hemoglobin 11.2 g/dL (12.2-16.2); Lymphocytes # (auto) 1.7 10 ^3/uL (0.4-5.4); Lymphocytes % (auto) 13.4 % (10.0-50.0); Mean Corpuscular Hemoglobin 30.6 pg (28.0-32.0); Mean Corpuscular Hgb Conc. 34.3 g/dL (32.0-36.0); Mean Corpuscular Volume 89.2 fL (80.0-100.0); Monocytes # (auto) 0.9 10 ^3/uL (0-1.3); Monocytes % (auto) 6.8 % (0.0-12.0); Neutrophils # (auto) 10.1 10 ^3/uL (1.6-8.6); Neutrophils % (auto) 79.4 % (37.0-80.0); Platelet Count (auto) 292 10^3/uL (140-450); Red Blood Cells 3.65 10^6/uL (4.0-5.20); Red Cell Distribution Width 12.8 % (11.8-14.3); White Blood Cell 12.7 10^3/uL (4.4-10.8)
[2024-12-23 12:39] LABS: Potassium 3.9 mmol/L (3.5-5.1); Sodium 139 mmol/L (136-145)
[2024-12-23 12:40] LABS: Anion Gap 5 (5-15); Calcium 9.2 mg/dL (8.7-10.4); Carbon Dioxide 27 mmol/L (20-31)
[2024-12-23 12:44] LABS: Chloride 107 mmol/L (98-107)
[2024-12-23 12:45] LABS: BUN/Creatinine Ratio 11.5 (10.0-20.0); Blood Urea Nitrogen 9 mg/dL (9-23); Glucose 116 mg/dL (74-106)
--- NOTE | 2024-12-23 16:58 | DVHDSRES ---
Discharge Summary Date of Admission Resident Creating Document: CLINTON MEYER RESIDENT Dec 20, 2024 at 15:18 Date of Discharge: Dec 23, 2024 Labs/Diagnostic Data: Laboratory Results Test 12/23/24 12:01 12/22/24 05:28 12/21/24 05:07 12/20/24 18:42 White Blood Count 12.7 10^3/uL (4.4-10.8) Red Blood Count 3.65 10^6/uL (4.0-5.20) Hemoglobin 11.2 g/dL (12.2-16.2) Hematocrit 32.6 % (36.0-46.0) Mean Corpuscular Volume 89.2 fL (80.0-100.0) Mean Corpuscular Hemoglobin 30.6 pg (28.0-32.0) Mean Corpuscular Hemoglobin Concent 34.3 g/dL (32.0-36.0) Red Cell Distribution Width 12.8 % (11.8-14.3) Platelet Count 292 10^3/uL (140-450) Mean Platelet Volume 7.9 fL (6.9-10.8) Neutrophils (%) (Auto) 79.4 % (37.0-80.0) Lymphocytes (%) (Auto) 13.4 % (10.0-50.0) Monocytes (%) (Auto) 6.8 % (0.0-12.0) Eosinophils (%) (Auto) 0.0 % (0.0-7.0) Basophils (%) (Auto) 0.4 % (0.0-2.0) Neutrophils # (Auto) 10.1 10 ^3/uL (1.6-8.6) Lymphocytes # (Auto) 1.7 10 ^3/uL (0.4-5.4) Monocytes # (Auto) 0.9 10 ^3/uL (0-1.3) Eosinophils # (Auto) 0 10 ^3/uL (0-0.8) Basophils # (Auto) 0.1 10 ^3/uL (0-0.2) Nucleated Red Blood Cells 0.0 % Sodium Level 139 mmol/L (136-145) Potassium Level 3.9 mmol/L (3.5-5.1) Chloride Level 107 mmol/L (98-107) Carbon Dioxide Level 27 mmol/L (20-31) Anion Gap 5 (5-15) Blood Urea Nitrogen 9 mg/dL (9-23) Creatinine 0.78 mg/dL (0.550-1.02) Glomerular Filtration Rate Calc 86 mL/min (>90) BUN/Creatinine Ratio 11.5 (10.0-20.0) Serum Glucose 116 mg/dL (74-106) Calcium Level 9.2 mg/dL (8.7-10.4) Beta HCG, Quantitative 3.0 mIU/mL (1.5-4.2) Prothrombin Time 11.0 sec (9.3-11.8) Prothrombin Time INR 1.04 (0.9-1.15) Activated Partial Thromboplast Time 27.1 SEC (24.5-34.5) Total Bilirubin 0.9 mg/dL (0.2-1.0) Aspartate Amino Transferase (AST) 16 U/L (13-40) Alanine Aminotransferase (ALT) 19 U/L (7-40) Alkaline Phosphatase 82 U/L (46-116) Total Protein 7.2 g/dL (5.7-8.2) Albumin 4.4 g/dL (3.2-4.8) Thyroid Stimulating Hormone (TSH) 2.79 uIU/mL (0.55-4.78) Test 12/20/24 10:41 12/20/24 10:23 Hemoglobin A1c 5.1 % A1C (<5.7) Magnesium Level 2.2 mg/dL (1.6-2.6) Lipase 43 U/L (12-53) Vitamin B12 Level 467 pg/mL (211-911) Vitamin D 25-Hydroxy 29.2 ng/mL (30.0-100) Urine Color Yellow (Yellow) Urine Clarity Clear (Clear) Urine pH 8.0 (5.0-9.0) Urine Specific [place] 1.024 (1.001-1.035) Urine Protein Trace (Negative) Urine Ketones Negative (Negative) Urine Blood Negative /uL (Negative) Urine Nitrite Negative (Negative) Urine Bilirubin Negative (Negative) Urine Urobilinogen 2 mg/dL (Negative) Urine Leukocyte Esterase Negative /uL (Negative) Urine RBC 12 /hpf (0 - 4) Urine Microscopic WBC 1 /HPF (0-5) Urine Squamous Epithelial Cells Few /hpf (<5) Urine Bacteria None seen /hpf (None Seen) Urine Mucus Few (None Seen) Urine Glucose Normal mg/dL (Normal) Other Laboratory Tests 12/23/24 12:01 Brief Hx & Hospital Course: This is a 59-year-old Luxembourgish-speaking female with past medical history of hypertension, cholelithiasis who presented to the ER with a chief complaint of right-sided abdominal pain for the past week. She reported right upper quadrant pain, radiating to the back associated with nausea and vomiting, she is not able to tolerate liquids or solid. Patient was diagnosed with cholelithiasis in 2023 and has an initial appointment with the surgeon on January 16. She developed right upper quadrant pain and therefore she decided to come into the ER. Ultrasound abdomen completed with the ER, shows cholelithiasis. Patient has positive Arnett sign on physical examination. Past medical history: Hypertension Past surgical history: Right shoulder surgery Family history: Open heart surgery in brother for congenital heart disease at the age of 19 Medication: Takes antihypertensive-does not remember the name Allergic history, denies Social history lives with daughter, denies smoking or drinking or illicit drug use During her hospitalization, patient was diagnosed with acute cholecystitis, Arnett sign was positive, LFTs were unremarkable. Patient had intractable nausea and vomiting. She was started on IV ceftriaxone and metronidazole. Surgeon was consulted, and the patient went for laparoscopic cholecystectomy on 12/22. Patient tolerated the surgery well. No drains or complication. Discharge plan: 12/23-patient is hemodynamically stable, ambulating, had a bowel movement, tolerating diet well. Therefore she is discharged home with the recommendations follow up with surgeon as outpatient, primary care physician as outpatient. Augmentin 875 mg b.i.d. for next 7 days Discharge diagnosis Right upper quadrant pain secondary to cholelithiasis status post laparoscopic cholecystectomy 12/22 Acute cholecystitis-Arnett's positive Intractable nausea and vomiting Hypertension Vitamin-D deficiency Consults/Reason for consult Surgeon consulted for cholecystectomy Operations or Procedures DATE OF SURGERY: 12/22/2024 PREOPERATIVE DIAGNOSIS: Acute cholecystitis. POSTOPERATIVE DIAGNOSIS: Acute cholecystitis. PROCEDURE: Laparoscopic cholecystectomy. SURGEON: Leonel Stanley MD BUSINESS ATTORNEY: None. ANESTHESIA: General. ESTIMATED BLOOD LOSS: Close to 5 mL. DRAINS: No drains were used. COMPLICATIONS: No complications were encountered. DESCRIPTION OF PROCEDURE: The patient was prepped and draped in the usual sterile fashion in the supine position. An infraumbilical incision was applied, was taken down to the fascia. The Veress needle was introduced and CO2 insufflation was started to a pressure of 15 mmHg. The needle was withdrawn, replaced by the 5 mm trocar and a telescope introduced and the gallbladder was found acutely inflamed, distended. A 12 mm port was applied close to the xiphisternum and two 5 mm ports were applied more laterally in the subcostal line. With the instruments in place, the gallbladder was grasped at the fundus and infundibulum and the patient in the head up and right upper lateral position, the cystic duct and artery were , dissected out and clipped proximally and distally using Hem-o-Jeremy clips and divided in between making sure CBD was kept out of harm's at all times and gallbladder was detached from the liver bed using Harmonic dissection, placed in an EndoCatch bag and removed from the xiphisternal wound without any complication. Hemostasis was secured. Irrigation fluid was removed. The port sites were free from bleeding. EndoClose suture used for the fascial closure of the xiphisternal wound. All ports were withdrawn after all the CO2 had been let out and the patient was placed in supine. The wounds were then brought together using 3-0 Monocryl suture in a subcuticular fashion. Surgical glue was applied. The patient tolerated the procedure well and was taken back to recovery room in stable condition. Leonel Stanley MD RG/BERNA TID: [id number] RECEIPT: [id number] cc: DR. EDITH OSMAN DICTATED BY:LEONEL STANLEY MD DICTATED DATE/TIME:12/22/24 1624 ELECTRONICALLY SIGNED BY: ELECTRONICALLY CO-SIGNED BY: Condition at Discharge: Stable Final Diagnosis/Problems List Right upper quadrant pain secondary to cholelithiasis status post laparoscopic cholecystectomy 12/22 Acute cholecystitis-Arnett's positive Intractable nausea and vomiting Hypertension Vitamin-D deficiency Discharge Disposition: Home Discharge Instruct/Medications Diet: See Comment Diet comment: Full Liquid diet for 3 days, advanced as tolerated Activity: No Restrictions, As Tolerated Follow Up/Referral: Follow up with surgeon as outpatient within 7 days Follow up with primary care physician within 7 days Follow up with [facility] clinic within 7 days Medications: Per EMR Discharge Statement: "Patient was advised to return to the ER or call 911 if any headaches, dizziness, shortness of breath, chest pain, abdominal pain, bleeding, fevers, or worsening of medical condition. Patient was counseled about treatment plan, medications, possible side effects, patientverbalized understanding. All questions were answered to the best of my ability. This discharge took greater then 30 minutes in planning, reviewing documentation, counseling the patient, and discussing with other team members." ASSESSMENT ASSESSMENT Assessment Right upper quadrant pain secondary to cholelithiasis status post laparoscopic cholecystectomy 3/ Acute cholecystitis-Arnett's positive Intractable nausea and vomiting Date of Service: Dec 23, 2024 Billing Provider: DEDRICK CHAMPION MD Common Visit Codes: [id number] DISCH DAY >30min CLINTON MEYER RESIDENT Dec 23, 2024 16:58 DEDRICK CHAMPION MD Dec 26, 2024 02:34
[2024-12-23] MEDS ORDERED: CHOL500021 OR (17:06)
[2024-12-23] MEDS ORDERED: AUG875T PO (17:07)
--- NOTE | 2024-12-23 20:13 | DVHPN2 ---
Progress Note Date Seen: Dec 23, 2024 Medical Necessity Reason Pt with a Central, PICC or Fol: No Objective vital signs Vital Sign Date Time Temp Pulse Resp B/P (MAP) Pulse Ox O2 Delivery O2 Flow Rate FiO2 12/23/24 16:41 98.1 79 17 116/62 (80) 92 98.1 12/23/24 08:00 Room Air* 0 21 Total Intake and Output 12/22/24 12/22/24 12/23/24 15:00 23:00 07:00 Intake Total 150 ml 100 ml 300 ml Balance 150 ml 100 ml 300 ml medications Current Medications Medications Dose Ordered Sig/Deepak Route Start Time Stop Time Status Last Admin Dose Admin Ceftriaxone Sodium 50 ml @ 100 mls/hr DAILY@09 IV 12/21/24 09:00 12/23/24 09:26 100 MLS/HR Metronidazole 100 ml @ 100 mls/hr Q8HR IV 12/20/24 22:00 12/23/24 13:41 100 MLS/HR Pantoprazole Sodium 40 mg DAILY IV 12/21/24 10:00 12/23/24 09:26 40 MG Acetaminophen 500 mg Q4HPRN PRN PO 12/20/24 15:30 Acetaminophen/ Hydrocodone Bitart 1 tab Q4HPRN PRN PO 12/20/24 15:30 12/23/24 09:27 1 TAB Ondansetron HCl 4 mg Q6HPRN PRN IV 12/20/24 15:30 Ergocalciferol 50,000 unit Q7D PO 12/21/24 07:15 12/21/24 08:55 50,000 UNIT Fentanyl Citrate 25 mcg Q5MIN PRN IM 12/22/24 18:45 12/25/24 18:46 laboratory and microbiology Laboratory Tests 12/23/24 12:01 Test 12/23/24 12:01 Range/Units Serum Glucose 116 H 74-106 mg/dL Problem List/Assessment/Plan Problem List/Assessment/Plan AFEBRILE VSS ABD SOFT WOUNDS HEALING S/P LAP CHOLECYSTECTOMY NO COMPLICATIONS LFT WNL REINALDO DIET CLEARED FOR DISCHARGE INSTRUCTIONS RE DIET ACTIVITY F/UP GIVEN NURSE AT BEDSIDE Plan discussed with: Patient Dietary Evaluation Review Comments: 1) Consider TPN/PN if NPO >7 days 2) Advance diet as medically feasible 3) Continue current plan of care Expected Outcomes/Goals: Pt will meet 75% estimated needs Fu 2-3 days TOM STANLEY MD Dec 23, 2024 20:13
[2024-12-23] MEDS: ACETAMINOPHEN 500 MG TAB or CAP PO PRN (20:59)
== END 2024-12-23 21:10 | disposition home or self-care (01) | DRG 263 ==
LOC: ER 10:12 → OVERFLOW 15:18 → ER 15:19 → WEST WING 12-21 16:34
PROVIDERS: ADMIT Student in an Organized Health Care Education/Training Program; ATTEND Emergency Medicine
PROC: 0FT44ZZ Resection of Gallbladder, Percutaneous Endoscopic Approach (ICD-10-PCS; principal; 2024-12-22 17:18)
DX: K80.00 Calculus of gallbladder with acute cholecystitis without obstruction (principal); R71.0 Precipitous drop in hematocrit; E55.9 Vitamin D deficiency, unspecified; I10 Essential (primary) hypertension; Z82.49 Family history of ischemic heart disease and other diseases of the circulatory system; Z79.899 Other long term (current) drug therapy; Z88.8 Allergy status to other drugs, medicaments and biological substances; Z79.2 Long term (current) use of antibiotics; Z79.1 Long term (current) use of non-steroidal anti-inflammatories (NSAID); Z79.891 Long term (current) use of opiate analgesic
CPT/HCPCS: 36415; 71045; 76705; 80048; 80053; 81001; 82306; 82607; 83036; 83690; 83735; 84443; 84702; 85025; 85610; 85730; 86850; 86900; 86901; 96365; 96375; G0378; J0131; J0330; J1100; J2003; J2405; J2470; J2704; J3490